=== PATIENT | male | born 1975 ===

== ENCOUNTER 2021-07-17 15:01 | Emergency (ER) | payer MEDICAID ==
[~2021-07-17] VITALS: Ht 180.3 cm; Wt 81.6 kg
[2021-07-17] MEDS ORDERED: LOSA1TAB42 PO (15:17)
[2021-07-17 15:47] LABS: HEMATOCRIT 41.7 % (36.7-47.1); MEAN CORPUSCULAR HEMOGLOBIN 32.3 uug (23.8-33.4); MEAN CORPUSCULAR VOLUME 92.9 fL (73.0-96.2); PLATELET COUNT (AUTO) 188 K/uL (152-348)
[2021-07-17 15:52] LABS: POTASSIUM 3.5 mmol/L (3.5-5.1)
[2021-07-17 15:58] LABS: BILIRUBIN,TOTAL 0.5 mg/dL (0.2-1.0); TOTAL PROTEIN, SERUM 7.4 g/dL (6.4-8.2)
--- NOTE | 2021-07-17 16:00 | NUR ---
PT IS IN ROOM #2A. DR GONZALES EVALUATED THE PT.
--- NOTE | 2021-07-17 17:58 | NUR ---
PT WAS D/C'd TO HOME. D/C INSTRUCTIONS GIVEN TO THE PT BY DR GONZALES.
[2021-07-17 17:59] VITALS: BP 136/75
== END 2021-07-17 18:00 | disposition home or self-care (01) ==
LOC: ER 15:12
DX: I10 Essential (primary) hypertension (principal); I44.7 Left bundle-branch block, unspecified
CPT/HCPCS: 36415; 70030-TC; 70450; 71045; 85025; 93005; A4663; J7030